=== PATIENT | male | born 1985 | race Caucasian/White ===

== ENCOUNTER → 2020-11-30 | Outpatient (CLI) | payer BC ==
[~2020-11-30] VITALS: Ht 182.9 cm; Wt 87.5 kg
[~2020-11-30] MED LIST: STELARA90 MG/1 ML SUBQ; TIZANIDINE HCL4 M2 PO
[2020-11-30 08:35] VITALS: BP 127/91
--- NOTE | 2020-11-30 08:59 | NUR ---
Pain Clinic Assessment: 1. History of Osteoarthritis: * History of Rheumatoid Arthritis: Not Applicable 2. Height: 6 ft. 0 in. 182.9 cm. Weight: 193.0 lb. oz. 87.544 kg. Patient's BMI: 26.2 3. Vital Signs: BP: 127/91 Pulse: 77 Resp: 141 Temp: 02 Sat: 100 ECG Mon: 4. Pain Intensity: 5 5. Fall Risk: Dizziness: N Needs help standing or walking: N Fallen in the last 3 months: N Fall risk comments: 6. Patient on Blood Thinner: None 7. History of Hypertension: Y 8. Opioid Therapy greater than 6 weeks: N Opiate Contract Signed: 9. Risk Assessment Tool Provided: LOW 10. Functional Assessment Tool: 11. Recreational Drug Use: Never Drug Type: Tobacco Use: Never Smoker Tobacco Type: Amount or Packs/day: How Many Years: Alcohol Use: Yes Frequency: Daily Quant: 1-5 BEERS [employer]PENDS WHO DROP BY
--- NOTE | 2020-12-01 08:00 | HPC ---
[facility] [address] [address] PAIN MANAGEMENT CONSULTATION Name: TYRONE KAM Room #: REG [facility]..#: [id number] Admission: 11/30/20 Attend Phys: Eduardo Posada DO Discharge: Date of : 81 Report #: [id number] THIS REPORT FOR: cc: JONAS LOMAX Physician not on staff Eduardo Posada DO ~ DOC #: [id number] cc: Jonas Posada DO DATE OF SERVICE: 11/30/2020 REFERRING PHYSICIAN: Jonas Lomax MD CHIEF COMPLAINT: Low back pain; bilateral buttock pain, right greater than left. HISTORY OF PRESENT ILLNESS: As you know, the patient is a very pleasant 35-year-old male, reports a 1-1/2 year history of increasing low back pain, bilateral buttock and posterolateral thigh pain. The patient denied any injury or trauma that may have led to symptom development. He has undergone 8 weeks of physical therapy without improvement. He has been placed on muscle relaxants in the form of tizanidine on a p.r.n. basis. He has also undergone prednisone tapers due to his Crohn's disease, which improved his axial back and buttock symptoms, but unfortunately his symptoms did reoccur. He states he is having difficulty sleeping at night due to ongoing pain. He sought evaluation through his primary care physician who had the patient to undergo imaging of the lumbar spine in the form of MRI. MRI showed changes at the L5-S1 level and the patient was subsequently referred on to Neurosurgery for evaluation. The patient saw Dr. Jonas Lomax in consultation on 11/23/2020. He was diagnosed with radicular symptoms secondary to the findings at the L5-S1 level and referred to our clinic to discuss interventional treatment options. The patient reports pain today is continuous, steady, periodic and intermittent in nature. He describes the pain as burning, shooting, crushing, sharp and stabbing. Places current pain score anywhere from 0/10 to 5/10. Daily average at 5/10. Worst pain has been is 8/10. 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 He states muscle relaxants and rest tend to improve pain. He has been referred to our service to discuss interventional treatment options to address lumbar radicular symptoms. PAST MEDICAL HISTORY: 1. Crohn's disease. 2. Hypertension. 3. [place] [address] PAIN MANAGEMENT CONSULTATION Name: TYRONE KAM Room #: REG CLI Jose GuadalupeJose Guadalupe#: [id number] Admission: 11/30/20 Attend Phys: Eduardo Posada DO Discharge: Date of : 81 Report #: [id number] 4. Osteoarthritis. 5. Ulcers due to Crohn's disease. PAST SURGICAL HISTORY: 1. Bowel resection, 2005. 2. Elbow surgery. 3. Herniorrhaphy. 4. Repeat knee surgery. SOCIAL HISTORY: The patient denies tobacco use, denies IV or illicit drug use. Admits to occasional alcohol beverage. 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 He is not in litigation in regards to symptoms. ALLERGIES: NUBAIN. CURRENT MEDICATIONS: Tramadol 50 mg p.r.n. IMAGING: MRI lumbar spine shows annular disk bulge and annular tear at the L5-S1 level. No lateralizing features. Remainder of the MRI is normal. PHYSICAL EXAMINATION: VITAL SIGNS: Blood pressure 127/91, pulse 77, respiratory rate 14 and unlabored. The patient 100% on room air. Height 6 feet tall, weight 193 pounds, BMI calculated 26.2. GENERAL: Well-developed, well-nourished, well-hydrated 35-year-old male appearing stated age, pain is rated today at about 5/10. HEENT: Normocephalic, atraumatic. Pupils equal, round and responsive. He is deemed a good historian. He is wearing a mask in compliance with COVID-19 regulations. LUNGS: Appear clear. No wheeze, rhonchi or rales. CARDIOVASCULAR: Regular. No appreciable gallop, no rub. ABDOMEN: Soft, nontender, nondistended. Normoactive bowel sounds. EXTREMITIES: Show no clubbing, no cyanosis and no edema. MUSCULOSKELETAL: Lower extremity strength equal and symmetrical 5/5. Muscle bulk and tone equal and symmetrical in comparing lower extremities. Seated straight leg raising negative. Supine straight leg raising positive on the right at about 70-degree angle. Ankle clonus negative. Babinski is negative. A lumbar provocation testing is met with slight increase in axial back pain, no radiation of symptoms. ASSESSMENT: 1. Symptomatic lumbar radiculopathy. 2. Displacement of lumbar intervertebral disk with radiculopathy. 3. Facet arthropathy of lumbar spine. [facility] [address] [place] [address] PAIN MANAGEMENT CONSULTATION Name: TYRONE KAM Room #: REG CLJeremy Ford#: [id number] Admission: 11/30/20 Attend Phys: Eduardo Posada DO Discharge: Date of : 81 Report #: [id number] 4. Chronic intractable back pain. PLAN: 1. Based on today's physical exam and history the patient has provided, the description the patient uses in regards to pain as well as the location of symptoms, the likely source of the symptoms is a lumbar radiculopathy. The patient has sought evaluation with Neurosurgery who advised the patient he is not a surgical candidate and that a more conservative treatment option should be utilized. The findings at the L5-S1 level were consistent with the patient's symptoms. He was subsequently referred to our clinic to discuss treatment options to address pain related to the findings at the L5-S1 level. We discussed with the patient today treatment options, which would include physical therapy, stretching exercises and core strengthening, for which the patient attended 8 weeks without improvement, though this could be an option of treatment. We discussed medication management, though we have to be concerned with some of the medications, specifically nonsteroidal anti-inflammatories and the effect on his Crohn's disease. We discussed lumbar epidural injections under fluoroscopic guidance for which the patient was referred to our clinic. We also discussed spinal cord stimulator therapy with the patient and ultimately surgical options, though he has been deemed a nonsurgical candidate given the mild findings at the L5-S1 level. After reviewing the risks and benefits of all proposed treatment options, the patient chose to look towards a lumbar epidural injection under fluoroscopic guidance. The patient was advised due to third green party payer restrictions, authorization would have to be obtained before the patient could undergo a lumbar epidural injection. Authorization could take anywhere from 4-7 working days, will begin that process immediately. We are hopeful we will be able to have the patient return quickly to undergo the procedure, so that he can begin to see improvement in symptoms. 2. No medication changes made at today's visit. The patient will continue current medical therapy as prior prescribed. 3. We plan to see the patient back in followup visit once we have achieved authorization for the patient to undergo a lumbar epidural injection. 4. We wish to thank Dr. Jonas Lomax for the referral of the patient to our clinic. We will keep you apprised of his response to treatment as we address lumbar radicular symptoms secondary to the findings at the L5-S1 level. Again, we wish to thank you for the opportunity to see this patient in consultation. DO BHARAT Fontaine/[address] [address] PAIN MANAGEMENT CONSULTATION Name: TYRONE KAM OLAYINKA Room #: REG CLI Liliana#: [id number] Admission: 11/30/20 Attend Phys: Eduardo Posada DO Discharge: Date of : 81 Report #: [id number] <ELECTRONICALLY SIGNED> By: Eduardo Posada DO 12/01/20 0800 [id number] Eduardo Posada DO /nt
== END ==
LOC: PAIN 08:11
PROVIDERS: ATTEND Anesthesiology Pain Medicine
DX: G89.29 Other chronic pain (principal); M51.16 Intervertebral disc disorders with radiculopathy, lumbar region; M47.26 Other spondylosis with radiculopathy, lumbar region; I10 Essential (primary) hypertension; Z68.26 Body mass index [BMI] 26.0-26.9, adult; Z98.890 Other specified postprocedural states; Z88.8 Allergy status to other drugs, medicaments and biological substances; Z79.899 Other long term (current) drug therapy